=== PATIENT | male | born 1975 ===

== ENCOUNTER 2024-01-14 22:25 | Day surgery (SDC) | payer OTHER, SELFPAY ==
[2024-01-14 22:35] VITALS: BP 117/66; PULSE 86; RESP 16; TEMP 37.1; O2SAT 98; BMI 29.0
--- NOTE | 2024-01-14 22:53 | ED.GENADULT ---
HPI - General Adult General Chief complaint: Urogenital Problems, Male Stated complaint: full bladder, cannot urinate Time Seen by Provider: 01/14/24 22:53 History of Present Illness HPI narrative: last time he was able to urinate was yesterday at about 2300, felt he needed to go around 0400 and was unable to go, has been only able to go a very small amount today, a small trickle. no know hx of kidney stones, no hx of similar symptoms. feels abd. pressure/ feels like he has to pee. 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 48-year-old man presenting to the emergency department with difficulty with urination. Says he has only had minimal urine out since about 4:00 a.m. this is also correlating with onset of some pain in his low abdomen which has only increased over the course of the day. Began about 16 hours prior to presentation the Emergency Department Intense pressure. Has not had a fever. Did have a very good bowel movement yesterday but admittedly only a small 1 this morning. Does not recall last flatulence. 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 Does have a history of back surgery, anterior approach and another posterior approach. Last surgery I believe was in 2013. 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 Would appreciate some pain relief. Related Data Home Medications ?Medication ?Instructions ?Recorded ?Confirmed omeprazole 20 mg capsule,delayed 20 mg PO DAILY 01/14/24 01/14/24 release Allergies Allergy/AdvReac Type Severity Reaction Status Date / Time No Known Drug Allergies Allergy Verified 01/14/24 22:40 Review of Systems Status of ROS: Reports: 6 or more systems reviewed and unremarkable except as noted in History and below [facility] Social History Smoking Status: Heavy tobacco smoker What tobacco products do you use: cigarettes Smoking packs per day: 0.5 Smoking cigarettes per day: 10.0 Years smoked: 34 Smoking pack-years: 17.00 Do you use any of these nicotine containing products: E-Cigarettes and Vaping Products Second hand tobacco smoke exposure: No How often do you have a drink containing alcohol: monthly or less AUDIT-C Alcohol total score: 1 Non-prescribed substance use: denies use Exam Narrative: Exam Narrative: Pleasant. Seems mildly uncomfortable but calm. Skin is warm and dry. Extremities without edema. Is well-perfused. Lungs are clear. Heart is in a regular rate and rhythm. Abdomen with present bowel sounds. Is exquisitely tender in the right lower quadrant. Mildly tender right of midline in the suprapubic abdomen. Generally full abdomen. No masses appreciated. Const: Vital Signs, click to edit/add: Vital Signs - 24 hr 01/14/24 22:35 01/14/24 23:30 Temperature 98.8 F Pulse Rate [Pulse Oximeter] 86 93 Respiratory Rate 16 20 Blood Pressure [Ri t Upper Arm] 117/66 141/82 H Pulse Oximetry 98 96 Oxygen Delivery Me thod Room Air Room Air Documenting provider has reviewed patient's vital signs: yes Course Vital Signs Vital signs: Initial Vital Signs Temperature 98.8 F 01/14/24 22:35 Temperature Source Temporal Artery Scan 01/14/24 22:35 Pulse Rate 86 01/14/24 22:35 Respiratory Rate 16 01/14/24 22:35 Blood Pressure 117/66 01/14/24 22:35 Blood Pressure Mean 83 01/14/24 22:35 Blood Pressure Position Sitting 01/14/24 22:35 Pulse Oximetry 98 01/14/24 22:35 Oxygen Delivery Method Room Air 01/14/24 22:35 Vital Signs Temperature 98.8 F 01/14/24 22:35 Pulse Rate 86 01/14/24 22:35 Respiratory Rate 16 01/14/24 22:35 Blood Pressure 117/66 01/14/24 22:35 Pulse Oximetry 98 01/14/24 22:35 Oxygen Delivery Method Room Air 01/14/24 22:35 Temperature 98.8 F 01/14/24 22:35 Pulse Rate 93 01/14/24 23:30 Respiratory Rate 20 01/14/24 23:30 Blood Pressure 141/82 H 01/14/24 23:30 Pulse Oximetry 96 01/14/24 23:30 Oxygen Delivery Method Room Air 01/14/24 23:30 Medications Administered Medications: Discontinued Medications Generic Name Dose Route Start Last Admin Trade Name Freq PRN Reason Stop Dose Admin Sodium Chloride 1,000 mls @ 1,000 mls/hr 01/14/24 23:00 01/15/24 00:30 0.9 % Sodium Chloride 1000 Ml IV 01/14/24 23:59 Infused .Q1H ONE Infusion Ketorolac Tromethamine 15 mg 01/14/24 23:00 01/14/24 23:42 Ketorolac 15 Mg/Ml Inj IVP 01/14/24 23:01 15 mg ONCE ONE Administration Morphine Sulfate 4 mg 01/14/24 23:00 01/14/24 23:43 Morphine 4 Mg/Ml Inj IVP 01/14/24 23:01 4 mg ONCE ONE Administration Ondansetron HCl 4 mg 01/14/24 23:00 01/14/24 23:43 Ondansetron 2 Mg/Ml Inj IVP 01/14/24 23:01 4 mg ONCE ONE Administration Medical Decision Making MDM Narrative Medical decision making narrative: Differential includes constipation, urinary retention however bladder scanned for about 10 mL, mesenteric adenitis. Leading in differential though I think is appendicitis. Will be performing abdomen pelvis CT. He is definitely reluctant to receive a catheter in so if has large urinary bladder on CT would then pursue catheter placement that point. Labs are pending as well IV fluids, lower dose ketorolac, morphine, Zofran. On reassessment is markedly improved. White count is nearly 18,000. IV contrasted CT of abdomen and pelvis by my read shows mildly dilated appendix with the small I think fecalith. Mild periappendiceal stranding. Radiology over-read as below. CT through the abdomen and pelvis following 108 mL Isovue 370 IV contrast Comparison: None Findings: Lower chest: No acute abnormality appreciated. Hepatobiliary: No significant parenchymal abnormality is appreciated. Spleen: Unremarkable. Pancreas: No acute abnormality appreciated. Adrenal glands: No acute abnormality appreciated. Kidneys: Contrast excretion into the collecting system precludes reliable assessment for nonobstructing calculi. No hydronephrosis or acute parenchymal abnormality appreciated. Bowel: No obstruction. Mild prominence of the appendix with mild hyperemia and adjacent stranding. Vascular: Mild atherosclerosis. Lymph nodes: No gross lymphadenopathy. Peritoneum: No free air. No free fluid. : No acute abnormality appreciated. Soft tissues: No acute abnormality appreciated. Bones: No acute fracture. No lytic or blastic lesion. Degenerative changes of the lower lumbar spine. Impression: Suspected acute uncomplicated appendicitis. Will be contacting general surgery for further recommendations and anticipate admission. Handing off at change of shift Lab Data Lab results reviewed: Yes I reviewed the patient's lab results Labs: Lab Results 01/14/24 Range/Units 23:25 WBC 17.79 H (4.50-11.00) K/uL RBC 4.75 (4.30-5.90) m/uL Hgb 15.0 (13.5-17.5) gm/dL Hct 44.9 (37.0-53.0) % MCV 95 (80-100) fL MCH 32 (26-34) pg MCHC 33 (32-36) gm/dL RDW Coeff of Ponce 12.3 (11.5-15.5) % Plt Count 241 (140-440) K/uL Neut % (Auto) 87.3 H (42.0-72.0) % Lymph % (Auto) 5.9 L (20-44) % [place] % (Auto) 6.5 (0.0-11.0) % Eos % (Auto) 0.0 (0.0-7.0) % Baso % (Auto) 0.1 (0.0-3.0) % Neut # (Auto) 15.50 H (1.7-7.0) K/uL Lymph # (Auto) 1.00 (0.90-2.90) K/uL [place] # (Auto) 1.20 H (0.00-0.90) K/UL Eos # (Auto) 0.00 (0.00-0.50) K/uL Baso # (Auto) 0.00 (0.00-0.30) K/uL Abs Immat Gran (auto) 0.00 (0.00-0.30) K/uL Imm/Tot Granulo (auto) 0.2 % Sodium 135 (135-149) mmol/L Potassium 4.1 (3.6-5.1) mmol/L Chloride 100 (96-114) mmol/L Carbon Dioxide 27 (20-32) mmol/L Anion Gap 8 (7-15) mEq/L BUN 11 (5-24) mg/dL Creatinine 0.9 (0.5-1.5) mg/dL Estimated Creat Clear 113.44 Estimated GFR 105 ml/min Glucose 144 H (60-115) mg/dL Lactate 1.7 (0.5-1.9) mmol/L Calcium 9.5 (8.4-10.6) mg/dL Total Bilirubin 1.0 (0.1-1.5) mg/dL Direct Bilirubin 0.3 (0.0-0.5) mg/dL AST 30 (12-35) U/L ALT 64 H (4-50) U/L Alkaline Phosphatase 67 (40-150) U/L C-Reactive Protein 1.4 H (0.5-1.0) mg/dL Total Protein 7.2 (6.0-8.3) g/dL Albumin 4.8 (3.3-5.0) g/dL Discharge Plan Discharge Clinical Impression: Acute appendicitis, Dehydration Patient Disposition: Admitted As Observation Condition: Stable Prescriptions: No Action omeprazole 20 mg capsule,delayed release(DR/EC) 20 mg PO DAILY Follow Up/Referrals: Provider,Not a Local [Primary Care Provider] -
--- NOTE | 2024-01-14 23:01 | CRLHL7_ITS ---
For Patients: As a result of the Century Cures Act, medical imaging exams and procedure reports are released immediately into your electronic medical record. You may view this report before your referring provider. If you have questions, please contact your health care provider. Indication: Right lower quadrant abdominal pain, urinary retention Technique: CT through the abdomen and pelvis following 108 mL Isovue 370 IV contrast Comparison: None Findings: Lower chest: No acute abnormality appreciated. Hepatobiliary: No significant parenchymal abnormality is appreciated. Spleen: Unremarkable. Pancreas: No acute abnormality appreciated. Adrenal glands: No acute abnormality appreciated. Kidneys: Contrast excretion into the collecting system precludes reliable assessment for nonobstructing calculi. No hydronephrosis or acute parenchymal abnormality appreciated. Bowel: No obstruction. Mild prominence of the appendix with mild hyperemia and adjacent stranding. Vascular: Mild atherosclerosis. Lymph nodes: No gross lymphadenopathy. Peritoneum: No free air. No free fluid. : No acute abnormality appreciated. Soft tissues: No acute abnormality appreciated. Bones: No acute fracture. No lytic or blastic lesion. Degenerative changes of the lower lumbar spine. Impression: Suspected acute uncomplicated appendicitis. Please note that all CT scans at this facility use dose modulation, iterative reconstruction, and/or weight-based dosing when appropriate to reduce radiation dose to as low as reasonably achievable. Dictated by Chaparro Rain MD @ 01/15/2024 12:27:48 AM (Electronically Signed)
[2024-01-14 23:29] LABS: Lactate* 1.7 mmol/L (0.5-1.9)
[2024-01-14 23:30] VITALS: BP 141/82; PULSE 93; RESP 20; O2SAT 96
[2024-01-14 23:31] LABS: Basophils Percent Auto 0.1 % (0.0-3.0); Hematocrit 44.9 % (37.0-53.0); Immature Granulocytes Pct Auto 0.2 %; Lymphocytes Percent Auto 5.9 % (20-44); Mean Corpuscular HGB Conc 33 gm/dL (32-36); Mean Corpuscular Hemoglobin 32 pg (26-34); Mean Corpuscular Volume 95 fL (80-100); Monocytes Percent Auto 6.5 % (0.0-11.0); Neutrophils Percent Auto 87.3 % (42.0-72.0); Platelet Count* 241 K/uL (140-440); RDW Coefficient of Variation % 12.3 % (11.5-15.5); Red Blood Count 4.75 m/uL (4.30-5.90); Slide Review Reflex No; White Blood Count* 17.79 K/uL (4.50-11.00)
[2024-01-14] MEDS: KETOROLAC 15 MG/ML inj IVP (23:42)
[2024-01-14 23:43] LABS: Chloride* 100 mmol/L (96-114)
[2024-01-14] MEDS: MORPHINE 4 MG/ML INJ IVP (23:43)
[2024-01-14] MEDS: ONDANSETRON 2 MG/ML inj 4 MG IVP (23:43)
[2024-01-14] MEDS: 0.9 % SODIUM CHLORIDE 1000 ml 1,000 ML IV (23:43)
[2024-01-14 23:44] LABS: Albumin* 4.8 g/dL (3.3-5.0); Potassium* 4.1 mmol/L (3.6-5.1); Sodium* 135 mmol/L (135-149)
[2024-01-14 23:47] LABS: Anion Gap 8 mEq/L (7-15); Aspartate Amino Transferase* 30 U/L (12-35); Bilirubin Direct* 0.3 mg/dL (0.0-0.5); Blood Urea Nitrogen* 11 mg/dL (5-24); Carbon Dioxide* 27 mmol/L (20-32); Creatinine* 0.9 mg/dL (0.5-1.5); Est. Creatinine Clearance* 113.44; Estimated Glomerular Filt Rate 105 ml/min; Total Protein* 7.2 g/dL (6.0-8.3)
[2024-01-14 23:48] LABS: Alanine Aminotransferase* 64 U/L (4-50); Alkaline Phosphatase* 67 U/L (40-150); Calcium* 9.5 mg/dL (8.4-10.6); Glucose* 144 mg/dL (60-115)
[2024-01-14 23:50] LABS: C Reactive Protein* 1.4 mg/dL (0.5-1.0)
[2024-01-15] VITALS (21 sets, daily range): BP systolic 100–135; BP diastolic 62–85; PULSE 65–95; RESP 16–18; TEMP 36.2–37.7; O2SAT 92–98; BMI 29.3
[2024-01-15] MEDS: PIPERACILLIN/TAZOBACTAM 3.375 GM in 0.9 % SODIUM CHLORIDE Mini-bag 100 ML IVPB ×3 (02:52→12:38)
[2024-01-15 03:09] LABS: Appearance Urine Clear (Clear); Bilirubin Urine Negative (Negative); Blood Urine Negative (Negative); Color Urine Yellow (Yellow); Glucose Urine Negative (Negative); Ketones Urine Negative (Negative); Leukocyte Esterase Urine Negative (Negative); Nitrite Urine Negative (Negative); Protein Urine Negative (Negative); Urobilinogen Urine 0.2 (0.2-1.0)
[2024-01-15 03:19] LABS: RBC Urine 0-2 (0-2); Squamous Epithelial Cell Urine Few (None-Few); WBC Urine 0-2 (0-5)
--- NOTE | 2024-01-15 03:38 | W.PM.TELEH&P ---
Telehealth- H&P: HPI History of Present Illness Time Seen by Provider: 03:21 Date Seen: 01/15/24 Chief complaint: abdominal pain Narrative: Kesha Durham is seen as an Interactive Telehealth visit. Kesha Durham is a 48 year Gentleman with no significant underlying past medical history other than tobacco use who was in his normal state of health until 24 hours ago when he woke up in his truck with abdominal pain and sense that he could not urinate and that he had a full bladder. Pain persisted throughout the day and he developed nausea and vomited several times. Pain got worse and he had loss of appetite. His convinced him to come the emergency room. Bladder scan to showed 10 cc. Exam was consistent with appendicitis and was confirmed with by CAT scan. He is being admitted for planned laparoscopic appendectomy later this morning. He has had prior back surgeries and has never had any issues with anesthesia nor is or family history of any issues with anesthesia. He is able to ambulate without shortness of breath and no history of any chest pain. Review of Systems Status of ROS: Reports: 10 or more systems reviewed and unremarkable except as noted in History and below PFSH [facility] Social History What is your current living situation?: I presently have a place to live Problems where you live: no known problems Problems where you live details: N/A In the past 12 months, utilities in danger of being shut off: no In past 12 months, lack of transportation kept you from medical appts, meetings, work, or getting things needed for daily living: no In the past 12 mos, have been you worried that your food would run out before you had money to buy more?: never true In the past 12 mos, the food you bought just didn't last and you didn't have money to buy more?: never true Highest level of school completed/degree received: 12th grade, no diploma Smoking Status: Current every day smoker What tobacco products do you use: cigarettes Smoking packs per day: 0.5 Smoking cigarettes per day: 10.0 Years smoked: 34 Smoking pack-years: 17.00 Do you use any of these nicotine containing products: Vaping Products Second hand tobacco smoke exposure: No How often do you have a drink containing alcohol: monthly or less AUDIT-C Alcohol total score: 1 Non-prescribed substance use: denies use Caffeine: Yes How often does anyone, including family, friends and others, physically hurt you: never How often does anyone, including family, friends and others, insult or talk down to you: never How often does anyone, including family, friends and others, threaten you with harm: never How often does anyone, including family, friends and others, scream or curse at you: never service: No Meds Home Medications and Allergies Home Medications ?Medication ?Instructions ?Recorded ?Confirmed ?Type omeprazole 20 mg capsule,delayed 20 mg PO DAILY 01/14/24 01/14/24 History release Home Medication Comments: prn albuterol inhaler Allergies Allergy/AdvReac Type Severity Reaction Status Date / Time No Known Drug Allergies Allergy Verified 01/14/24 22:40 Exam Narrative Exam Narrative: Physical Exam GENERAL: ?vital signs reviewed, well developed and nourished, in no distress HEENT: pupils are equal round and reactive to light, extraocular movements are grossly within normal limits and oral mucosa is moist. Mallamati Class I NECK: Supple without lymphadenopathy or thyromegaly according to nursing staff examination observation HEART: Regular rate and rhythm without any rubs, murmurs, or gallops. LUNGS: Clear to auscultation bilaterally with good air movement throughout ABDOMEN: Observation from nurse assisted exam,bowel sounds presentabdomen appears soft, no pain with gentle abdominal manipulation. Positive Mcburney's point tenderness without guarding, rigidity or rebound EXTREMITIES: Strength and sensation is observed to be grossly within normal limits in the upper and lower extremities.? No focal strength deficit is observed. SKIN:? Observed warm and dry with color normal Const Vital Signs, click to edit/add: Vital Signs - 24 hr 01/14/24 22:35 01/14/24 23:30 01/15/24 00:31 Temperature 98.8 F Pulse Rate 91 Pulse Rate [Left Pulse Oximeter] Pulse Rate [Pulse Oximeter] 86 93 Respiratory Rate 16 20 16 Blood Pressure 122/79 Blood Pressure [Right Arm] Blood Pressure [Right Upper Arm] 117/66 141/82 H Pulse Oximetry 98 96 93 Oxygen Delivery Method Room Air Room Air Room Air 01/15/24 01:01 01/15/24 01:31 01/15/24 02:01 Temperature Pulse Rate 95 87 92 Pulse Rate [Left Pulse Oximeter] Pulse Rate [Pulse Oximeter] Respiratory Rate 16 18 16 Blood Pressure 135/79 119/74 116/71 Blood Pressure [Right Arm] Blood Pressure [Right Upper Arm] Pulse Oximetry 95 93 94 Oxygen Delivery Method Room Air Room Air Room Air 01/15/24 02:32 01/15/24 03:10 Temperature 99.8 F H Pulse Rate 92 Pulse Rate [Left Pulse Oximeter] 95 Pulse Rate [Pulse Oximeter] Respiratory Rate 16 16 Blood Pressure 113/71 Blood Pressure [Right Arm] 127/79 Blood Pressure [Right Upper Arm] Pulse Oximetry 94 95 Oxygen Delivery Method Room Air Room Air Hospitalist - H&P: Result Labs Labs: Laboratory Results - last 24 hr 01/14/24 01/15/24 23:25 03:05 WBC 17.79 H RBC 4.75 Hgb 15.0 Hct 44.9 MCV 95 MCH 32 MCHC 33 RDW Coeff of Ponce 12.3 Plt Count 241 Neut % (Auto) 87.3 H Lymph % (Auto) 5.9 L [place] % (Auto) 6.5 Eos % (Auto) 0.0 Baso % (Auto) 0.1 Neut # (Auto) 15.50 H Lymph # (Auto) 1.00 [place] # (Auto) 1.20 H Eos # (Auto) 0.00 Baso # (Auto) 0.00 Abs Immat Gran (auto) 0.00 Imm/Tot Granulo (auto) 0.2 Sodium 135 Potassium 4.1 Chloride 100 Carbon Dioxide 27 Anion Gap 8 BUN 11 Creatinine 0.9 Estimated Creat Clear 113.44 Estimated GFR 105 Glucose 144 H Lactate 1.7 Calcium 9.5 Total Bilirubin 1.0 Direct Bilirubin 0.3 AST 30 ALT 64 H Alkaline Phosphatase 67 C-Reactive Protein 1.4 H Total Protein 7.2 Albumin 4.8 Urine Color Yellow Urine Appearance Clear Urine pH 7.0 Ur Specific [place] 1.010 Urine Protein Negative Urine Glucose (UA) Negative Urine Ketones Negative Urine Blood Negative Urine Nitrite Negative Urine Bilirubin Negative Urine Urobilinogen 0.2 Ur Leukocyte Esterase Negative Urine RBC 0-2 Urine WBC 0-2 Ur Squamous Epith Cells Few Urine Bacteria None Imaging CT Chest/Ab/Pelvis: Attestation: I have reviewed the pertinent imaging results. Radiologist's impression: suspected acute appendicitis Assessment and Plan Assessment and plan (1) Acute appendicitis: Status: Acute (2) Dehydration: Status: Acute Plan 1. Admit observation status 2. Post general surgery 3. N.p.o. and IV hydration 4. Piperacillin tazobactam 5. Symptomatic relief with as needed morphine and ondansetron 6. Sequential intermittent compression devices Telehealth: Statement Statement Telehealth Visit: Today's History and Physical is provided via interactive telehealth by Jaime Archibald MD.? Patient is located at [facility].? Provider is located at [facility].? Nursing staff assisted with the patient's exam. The visit being done today meets criteria for a telehealth visit and the patient or patient?s parent/guardian is aware the visit is a telehealth visit. Camera Start Time: 03:21 Camera End Time: 03:24
[2024-01-15] MEDS: ONDANSETRON ODT 4 MG TAB PO (04:18)
[2024-01-15] MEDS: LACTATED RINGERS 1000 ML 1,000 ML 150 ML IV ×2 (04:18→11:01)
[2024-01-15] MEDS: MORPHINE 4 MG/ML INJ 2 MG IVP ×4 (04:26→11:00)
[2024-01-15] MEDS: NICOTINE 14 mg PATCH 1 PATCH TRANSDERMA (04:39)
--- NOTE | 2024-01-15 06:46 | PC.NURSE ---
Pt alert & oriented x 4 and able to make needs known. 12/02 RLQ abdomen pain effectively treated with PRN Morphine. PRN Zofran given for nausea. IV to L AC patent with LR running at 150 mL/hr per order. Pt reports he does smoke half a pack a day with Nicotine patch applied to R upper arm this morning. Pt transfers/ambulates independently in room with IV pole. ?UA sent to lab for order with results received. Pt continent of bladder and currently NPO for appendectomy planned today.
--- NOTE | 2024-01-15 07:15 | PM.GSCN ---
History of Present Illness Consult details Date Seen: 01/15/24 Consult date: 01/15/24 Narrative: 48-year-old male presented to emergency room with abdominal pain. Patient states that he initially felt abdominal pressure in the right lower quadrant starting yesterday morning. Throughout the day the pain was getting progressively worse and more bothersome. 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 He felt abdominal pain when he was sitting. 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 Finally, he stepped at a rest stop south of [place] because he was not able to drive anymore and was not feeling well. His family brought him to the emergency room. Patient is passing gas. Upon his workup that I personally reviewed he was found to have an elevated WBC of 17. An abdominal CT was obtained that showed a dilated wall enhancing appendix with mild periappendiceal inflammation. There was no evidence of periappendiceal abscess. Review of Systems Narrative: General: no fevers HENT: no problems swallowing CV: no shortness of breath Resp: no cough GI: No nausea, vomiting, abdominal pain : no dysuria, no increased urinary frequency, no hematuria Skin: no new rashes Musculoskeletal: no back pain Neuro: no muscle weakness Psyche: no depression, no anxiety PFSH PFSH Surgical History (Updated 01/15/24 @ 07:21 by Gail Sanders MD) Previous back surgery ?Z98.890 - Other specified postprocedural states (ICD-10) Social History (Updated 01/15/24 @ 07:21 by Gail Sanders MD) Narrative: current smoker and vapes. rarely drinks EtOh. 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 What is your current living situation?: I presently have a place to live Problems where you live: no known problems Problems where you live details: N/A In the past 12 months, utilities in danger of being shut off: no In past 12 months, lack of transportation kept you from medical appts, meetings, work, or getting things needed for daily living: no In the past 12 mos, have been you worried that your food would run out before you had money to buy more?: never true In the past 12 mos, the food you bought just didn't last and you didn't have money to buy more?: never true Highest level of school completed/degree received: 12th grade, no diploma Smoking Status: Current every day smoker What tobacco products do you use: cigarettes Smoking packs per day: 0.5 Smoking cigarettes per day: 10.0 Years smoked: 34 Smoking pack-years: 17.00 Do you use any of these nicotine containing products: Vaping Products Second hand tobacco smoke exposure: No How often do you have a drink containing alcohol: monthly or less AUDIT-C Alcohol total score: 1 Non-prescribed substance use: denies use Caffeine: Yes How often does anyone, including family, friends and others, physically hurt you: never How often does anyone, including family, friends and others, insult or talk down to you: never How often does anyone, including family, friends and others, threaten you with harm: never How often does anyone, including family, friends and others, scream or curse at you: never Do you think of yourself as: straight/heterosexual Gender Identity: male service: No Meds Home Medications and Allergies Home Medications ?Medication ?Instructions ?Recorded ?Confirmed ?Type omeprazole 20 mg capsule,delayed 20 mg PO DAILY 01/14/24 01/14/24 History release Allergies Allergy/AdvReac Type Severity Reaction Status Date / Time No Known Drug Allergies Allergy Verified 01/14/24 22:40 Exam Narrative: Exam Narrative: General appearance: Alert, cooperative, and in no distress Pulmonary: Chest symmetric, lungs clear bilaterally Cardiovascular Heart: Regular rate and rhythm, S1, S2, no murmurs/rubs/gallops Gastrointestinal Abdominal: soft, not distended, tender to palpation in the right lower quadrant with rebound tenderness. There is a well-healed lower midline laparotomy scar from patient's previous anterior fusion. Skin: Normal skin color, texture, and turgor. No rashes or lesions. Psychiatric: Alert, cooperative, normal affect. Const: Vital Signs, click to edit/add: Vital Signs - 24 hr 01/14/24 22:35 01/14/24 23:30 01/15/24 00:31 Temperature 98.8 F Pulse Rate 91 Pulse Rate [Left P ulse Oximeter] Pulse Rate [Pulse Oximeter] 86 93 Respiratory Rate 16 20 16 Blood Pressure 122/79 Blood Pressure [Ri ght Arm] Blood Pressure [Ri ght Upper Arm] 117/66 141/82 H Pulse Oximetry 98 96 93 Oxygen Delivery Me thod Room Air Room Air Room Air 01/15/24 01:01 01/15/24 01:31 01/15/24 02:01 Temperature Pulse Rate 95 87 92 Pulse Rate [Left P ulse Oximeter] Pulse Rate [Pulse Oximeter] Respiratory Rate 16 18 16 Blood Pressure 135/79 119/74 116/71 Blood Pressure [Ri ght Arm] Blood Pressure [Ri ght Upper Arm] Pulse Oximetry 95 93 94 Oxygen Delivery Me thod Room Air Room Air Room Air 01/15/24 02:32 01/15/24 03:10 01/15/24 03:30 Temperature 99.8 F H Pulse Rate 92 Pulse Rate [Left P ulse Oximeter] 95 Pulse Rate [Pulse Oximeter] Respiratory Rate 16 16 16 Blood Pressure 113/71 Blood Pressure [Ri ght Arm] 127/79 Blood Pressure [Ri ght Upper Arm] Pulse Oximetry 94 95 95 Oxygen Delivery Me thod Room Air Room Air Room Air Results Labs Labs: Abnormal lab results 01/14/24 Range/Units 23:25 WBC 17.79 H (4.50-11.00) K/uL Neut % (Auto) 87.3 H (42.0-72.0) % Lymph % (Auto) 5.9 L (20-44) % Neut # (Auto) 15.50 H (1.7-7.0) K/uL Reynolds # (Auto) 1.20 H (0.00-0.90) K/UL Glucose 144 H (60-115) mg/dL ALT 64 H (4-50) U/L C-Reactive Protein 1.4 H (0.5-1.0) mg/dL Diabetes panel 01/14/24 Range/Units 23:25 Sodium 135 (135-149) mmol/L Potassium 4.1 (3.6-5.1) mmol/L Chloride 100 (96-114) mmol/L Carbon Dioxide 27 (20-32) mmol/L BUN 11 (5-24) mg/dL Creatinine 0.9 (0.5-1.5) mg/dL Glucose 144 H (60-115) mg/dL Calcium 9.5 (8.4-10.6) mg/dL AST 30 (12-35) U/L ALT 64 H (4-50) U/L Alkaline Phosphatase 67 (40-150) U/L Total Protein 7.2 (6.0-8.3) g/dL Albumin 4.8 (3.3-5.0) g/dL Calcium panel 01/14/24 Range/Units 23:25 Calcium 9.5 (8.4-10.6) mg/dL Albumin 4.8 (3.3-5.0) g/dL Pituitary panel 01/14/24 Range/Units 23:25 Sodium 135 (135-149) mmol/L Potassium 4.1 (3.6-5.1) mmol/L Chloride 100 (96-114) mmol/L Carbon Dioxide 27 (20-32) mmol/L BUN 11 (5-24) mg/dL Creatinine 0.9 (0.5-1.5) mg/dL Glucose 144 H (60-115) mg/dL Calcium 9.5 (8.4-10.6) mg/dL Adrenal panel 01/14/24 Range/Units 23:25 Sodium 135 (135-149) mmol/L Potassium 4.1 (3.6-5.1) mmol/L Chloride 100 (96-114) mmol/L Carbon Dioxide 27 (20-32) mmol/L BUN 11 (5-24) mg/dL Creatinine 0.9 (0.5-1.5) mg/dL Glucose 144 H (60-115) mg/dL Calcium 9.5 (8.4-10.6) mg/dL Total Bilirubin 1.0 (0.1-1.5) mg/dL AST 30 (12-35) U/L ALT 64 H (4-50) U/L Alkaline Phosphatase 67 (40-150) U/L Total Protein 7.2 (6.0-8.3) g/dL Albumin 4.8 (3.3-5.0) g/dL All other labs normal. Progress Note:A&P Assessment and plan (1) Acute appendicitis: Status: Acute Assessment and Plan: 48-year-old male presents with acute appendicitis. I discussed with the patient his laboratory and imaging findings. He has elevated WBC and CT scan suggestive of acute appendicitis. I recommended to proceed with laparoscopic appendectomy. The procedure was discussed in detail. The risks associated procedure including infection, bleeding, injury to intra-abdominal organs, and the need for additional procedures were all discussed with the patient, and he agreed to proceed.
[2024-01-15] MEDS: ACETAMINOPHEN 325 MG TABLET 650 MG PO (07:21)
--- NOTE | 2024-01-15 07:25 | PC.NURSE ---
Pt refused SCDs overnight when approached.
[2024-01-15] MEDS: BUPIVACAINE 0.25% 30 ML INJECTION (13:17)
--- NOTE | 2024-01-15 13:32 | P.GSOP_ITS ---
Operative Note Date of procedure: 01/15/24 Pre-op diagnosis: 1. Acute appendicitis. Post-op diagnosis: Same Type of Procedure: 1. Laparoscopic appendectomy. Indications: 48-year-old male presented to emergency room last night with right lower quadrant abdominal pain of less than 24 hours. Patient's pain was described as pressure and he had multiple episodes of vomiting. On clinical exam he was found to have tenderness to palpation in the right lower quadrant with rebound tenderness. Upon his workup he was found to have an elevated WBC of 17. An abdominal CT was obtained that showed dilated wall enhancing appendix concerning for acute appendicitis. Given patient's clinical history and his symptoms, acute appendicitis was suspected and laparoscopic appendectomy was recommended. The procedure was discussed in detail. The risks associated procedure including infection, bleeding, injury to intra-abdominal organs, and the need for additional procedures were all discussed with the patient, and he agreed to proceed. Procedure Description: After discussing the risks and benefits of the procedure, the patient signed informed consent.? The operative site was marked and the patient was brought to the operating room and placed on the operating table in supine position.? Care was taken to pad the patient's pressure points.?? The patient was then intubated by anesthesia.?? The operative site was then prepped and draped in the usual sterile fashion.? A time-out was then performed. A 5-mm laparoscopy port was placed in the left upper quadrant guided by a 5-mm laparoscope placed into a translucent trochar. Passage through the layers of the abdominal wall was visualized with the laparoscope. A pneumoperitoneum was established. A 30-degree 5-mm laparoscope was advanced into the abdomen. The abdomen was briefly surveyed, and there was no evidence of diffuse peritonitis. A 12-mm port and a 5-mm port were placed in the left low quadrant and suprapubically, respectively, under direct visualization by laparoscope. Left upper quadrant entrance port was then examined intraabdominally by placing the camera through the left lower quadrant port and no intraabdominal injury was seen. The patient was placed in Trendelenburg position, allowing the abdominal contents to shift cephalad. The small bowel was moved toward the midline in the abdomen and this allowed for identification of the appendix. It appeared to be inflamed. Appendix was adherent to the sigmoid colon with inflammatory adhesions. Those were broken down bluntly. The appendix was grasped and dissected from the lateral peritoneum using Harmonic scalpel. Appendiceal artery was identified and was skeletonized with Harmonic scalpel. It was clipped with 2 5 mm clips on the patient's side and divided with Harmonic on the specimen side. The appendiceal base was further skeletonized with Harmonic scal pel. A vascular load Endo-MARY stapler was advanced through the 12-mm port into the abdomen and appendix was stapled off at its base. The appendix was then placed in an endoscopic retrieval bag and extracted from the abdomen through the 12-mm port. The abdomen was surveyed for hemostasis. And no bleeding was seen. The 12-mm port was withdrawn and the fascial defect was closed with 2 interrupt ed 0-0 Vicryl stitches. The 5-mm port was removed under direct visualization. The left upper quadrant port was used to evacuate the pneumoperitoneum and then withdrawn. The skin incisions were closed with 4-0 monocryl. Steri-Strips were applied over the incisions. All counts were correct at the end of the case. The patient tolerated this procedure well and was transferred to PACU in stable condition. Findings: Acute suppurative appendicitis with no perforation. Anesthesia: GETA Surgeon: Gail Sanders MD Estimated blood loss (mL): 5 Specimen: Appendix Condition: stable Disposition: PACU
--- NOTE | 2024-01-15 13:33 | PC.NURSE ---
Pt has been A&O, afebrile and VSS morning of surgery. Pain is adequately managed with PRN IV morphine and PRn Tylenol. Pt has been up ad sofía in his room. Voiding without issues. PIV in left AC infusing LR @ 150 mL/hr. Pt off unit to surgery at 1225 and discharging from [facility]. Pt's , Dawn, notified.
--- NOTE | 2024-01-15 13:36 | W.ANESCHARGE ---
Anesthesia Charges Start Date/Time Anesthesia Start Date: 01/15/24 Anesthesia Start Time: 12:25 Stop Date/Time Anesthesia Stop Date: 01/15/24 Anesthesia Stop Time: 13:36
--- NOTE | 2024-01-15 13:46 | W.ANESCHARGE ---
Anesthesia Charges Start Date/Time Anesthesia Start Date: 01/15/24 Anesthesia Start Time: 12:25 Stop Date/Time Anesthesia Stop Date: 01/15/24 Anesthesia Stop Time: 13:36 Summary Emergency: [employer]
--- NOTE | 2024-01-15 15:26 | SUR.PHASEII ---
Nicotine patch removed prior to DC, skin intact on Upper Right narm
== END 2024-01-15 15:11 | disposition home or self-care (01) ==
LOC: ED 01-15 01:27 → MEDSURG 01-15 03:39 → SS 01-15 09:02 → MEDSURG 01-15 09:03 → SS 01-15 14:27
PROVIDERS: Emergency Provider Family Medicine; Visit Provider Surgery
PROC: 0DTJ4ZZ Resection of Appendix, Percutaneous Endoscopic Approach (ICD-10-PCS; CPT 44970; principal; 2024-01-15 12:30)
DX: K35.80 Unspecified acute appendicitis (principal); E86.0 Dehydration; R39.198 Other difficulties with micturition; F17.210 Nicotine dependence, cigarettes, uncomplicated
CPT/HCPCS: 44970; 00840; 36415; 74177; 80048; 80076; 81001; 83605; 85025; 86140; 88304; 99140; 99284; 99285; A9270; G0378; J0330; J0665; J1100; J1885; J2250; J2270; J2405; J2543; J2704; J2710; J3010; J7030; J7120; Q9967; S4990